=== PATIENT | female | born 1935 | race Caucasian/White ===

== ENCOUNTER 2021-11-28 16:31 | Inpatient (IN) | payer MEDICARE, BC ==
[2021-11-28] MEDS ORDERED: Sodium Chloride 0.9% 10 ML Syringe FLUSH PRN (16:39)
[2021-11-28] MEDS ORDERED: Diltiazem 25 MG/5 ML SDV IVPUSH ONE ×2 (16:58→19:16)
[2021-11-28] MEDS ORDERED: Aspirin 81 MG Tab.Chew PO ONE (17:32)
[2021-11-28 17:54] LABS: ANION GAP 9.6 meq/L (7-15); CHLORIDE,CL 102 mmol/L (98-107); SODIUM,NA 136 mmol/L (136-145)
[2021-11-28] MEDS ORDERED: oxyCODONE 5 MG Tab PO ONE (18:27)
[2021-11-28] MEDS ORDERED: Ondansetron 4 MG/2 ML SDV IVPUSH ONE (18:56)
[2021-11-28] MEDS ORDERED: Heparin Sodium/0.45% NaCl 500 ML IV SCH (19:15)
[2021-11-28] MEDS ORDERED: Diltiazem 125 MG in Sodium Chloride 0.9% 100 ML IV SCH (19:30)
[2021-11-28] MEDS ORDERED: Sodium Chloride 0.9% 1,000 ML IV SCH (20:15)
[2021-11-28] MEDS ORDERED: Heparin Sodium 5,000 Units/ML Vial IVPUSH ONE (20:31)
[2021-11-28] MEDS ORDERED: Fluticasone NASAL Spray 16 GM Bottle NASBOTH PRN (20:32)
[2021-11-28] MEDS ORDERED: Acetaminophen 500 MG Tab PO PRN (20:32)
[2021-11-28] MEDS ORDERED: Promethazine 25 MG/ML SDV IM PRN (20:41)
[2021-11-28] MEDS ORDERED: Morphine 2 MG/ML SYRINGE IVPUSH PRN (20:58)
[2021-11-28] MEDS ORDERED: Nitroglycerin 0.4 MG Tab.SL SL PRN (20:59)
[2021-11-28] MEDS: LORazepam 2 MG/ML SDV IVPUSH PRN (21:13)
[2021-11-28] MEDS ORDERED: Haloperidol Lactate 5 MG/ML SDV IVPUSH ONE (22:29)
[2021-11-29] MEDS: LORazepam 2 MG/ML SDV IVPUSH PRN (07:52)
[2021-11-29] MEDS ORDERED: Cetirizine 10 MG Tab PO SCH (08:00)
[2021-11-29] MEDS ORDERED: Pantoprazole 40 MG Vial IVPUSH SCH (08:00)
[2021-11-29] MEDS ORDERED: Labetalol 100 MG Tab PO SCH (08:00)
[2021-11-29 08:53] LABS: ANION GAP 8.1 meq/L (7-15)
[2021-11-29 11:06] VITALS: BP 111/45; PULSE 73
[2021-11-29 12:59] LABS: CORONAVIRUS COVID-19 NAA NEGATIVE (NEGATIVE); RESPIRATORY SYNCYTIAL VIR NAA NEGATIVE (NEGATIVE)
[2021-11-29] MEDS ORDERED: ALPRAZolam 1 MG Tab PO SCH (20:00)
[2021-11-29] MEDS ORDERED: Citalopram 20 MG Tab PO SCH (20:00)
== END 2021-11-29 14:25 | DRG 310 ==
LOC: LL.ED 16:31 → LL.MS 19:35
PROVIDERS: ADMIT Physician Assistant; ATTEND Physician Assistant
DX: I48.91 Unspecified atrial fibrillation (principal); R77.8 Other specified abnormalities of plasma proteins; I10 Essential (primary) hypertension; K21.9 Gastro-esophageal reflux disease without esophagitis; F41.9 Anxiety disorder, unspecified; M19.90 Unspecified osteoarthritis, unspecified site; K08.409 Partial loss of teeth, unspecified cause, unspecified class; Z20.822 Contact with and (suspected) exposure to COVID-19; Z79.82 Long term (current) use of aspirin; Z79.899 Other long term (current) drug therapy; Z88.0 Allergy status to penicillin; Z79.01 Long term (current) use of anticoagulants; Z95.2 Presence of prosthetic heart valve; Z85.828 Personal history of other malignant neoplasm of skin; Z98.49 Cataract extraction status, unspecified eye
CPT/HCPCS: 0241U; 36415; 71045; 80053; 81003; 83605; 83735; 83880; 84484; 85025; 85379; 85610; 93005; 96374; 96375; 96376; 99285-25; A9270-GY; C9113; J1630; J1644; J2060; J2405; J2550; J3490; J7030

== ENCOUNTER 2022-02-14 14:30 | Emergency (ER) | payer MEDICARE, BC ==
[2022-02-14 15:00] LABS: ANION GAP 7.4 meq/L (7-15); CHLORIDE,CL 105 mmol/L (98-107); SODIUM,NA 142 mmol/L (136-145)
[2022-02-14 17:02] VITALS: BP 130/60; PULSE 65
== END 2022-02-14 15:38 | disposition home or self-care (01) ==
LOC: LL.ED 14:30
DX: R77.8 Other specified abnormalities of plasma proteins (principal); I48.91 Unspecified atrial fibrillation; I25.2 Old myocardial infarction; I10 Essential (primary) hypertension; K21.9 Gastro-esophageal reflux disease without esophagitis; M19.90 Unspecified osteoarthritis, unspecified site; Z88.0 Allergy status to penicillin; Z79.01 Long term (current) use of anticoagulants
CPT/HCPCS: 36415; 70450; 80053; 82607; 84443; 84484; 85025; 93005; 93880; 99284-25

== ENCOUNTER 2022-02-15 06:44 | Observation (INO) | payer MEDICARE, BC ==
[2022-02-15] MEDS ORDERED: Ondansetron 4 MG/2 ML SDV IVPUSH ONE (07:19)
[2022-02-15] MEDS: Sodium Chloride 0.9% 10 ML Syringe FLUSH PRN ×2 (07:43→15:07)
[2022-02-15 08:06] LABS: PTT,PARTIAL THROMBOPLSTIN TIME 34.9 SEC (23.6-29.8)
[2022-02-15 08:28] LABS: CHLORIDE,CL 104 mmol/L (98-107); SODIUM,NA 142 mmol/L (136-145)
[2022-02-15 08:29] LABS: ANION GAP 10.2 meq/L (7-15)
[2022-02-15] MEDS ORDERED: [UNRECOGNIZED DRUG - OTHER] NASBOTH PRN (09:33)
[2022-02-15] MEDS ORDERED: FLUTICASONE PROPIONATE NASBOTH PRN (09:33)
[2022-02-15] MEDS ORDERED: Acetaminophen 500 MG Tab PO PRN (10:00)
[2022-02-15] MEDS ORDERED: Ondansetron 4 MG/2 ML SDV IVPUSH PRN (15:00)
[2022-02-15] MEDS ORDERED: Warfarin 5 MG Tab PO SCH (16:00)
[2022-02-15] MEDS ORDERED: Prochlorperazine 10 MG/2 ML SDV IVPUSH ONE (18:11)
[2022-02-15] MEDS ORDERED: ALPRAZolam 1 MG Tab PO PRN (18:51)
[2022-02-15] MEDS ORDERED: ALPRAZolam 1 MG Tab PO ONE (18:51)
[2022-02-15] MEDS: Metoprolol Tartrate 50 MG Tab PO SCH (19:27)
[2022-02-15] MEDS: Lisinopril 5 MG Tab PO SCH (19:27)
[2022-02-15] MEDS ORDERED: Citalopram 20 MG Tab PO SCH (20:00)
[2022-02-15] MEDS ORDERED: ALPRAZolam 1 MG Tab PO SCH (20:00)
[2022-02-16 07:04] VITALS: BP 140/65
[2022-02-16] MEDS: Lisinopril 5 MG Tab PO SCH (07:05)
[2022-02-16] MEDS: Metoprolol Tartrate 50 MG Tab PO SCH (07:05)
[2022-02-16 07:07] VITALS: PULSE 64
[2022-02-16 07:51] LABS: ANION GAP 6.3 meq/L (7-15)
[2022-02-16] MEDS ORDERED: Cetirizine 10 MG Tab PO SCH (08:00)
[2022-02-16] MEDS ORDERED: Pantoprazole 40 MG Tab.CR PO SCH (08:00)
== END 2022-02-16 10:42 | disposition home or self-care (01) ==
LOC: LL.ED 06:44 → LL.MS 08:51
PROVIDERS: ADMIT Physician Assistant; ATTEND Emergency Medicine
DX: R11.2 Nausea with vomiting, unspecified (principal); R10.13 Epigastric pain; R10.11 Right upper quadrant pain; R77.8 Other specified abnormalities of plasma proteins; I10 Essential (primary) hypertension; K21.9 Gastro-esophageal reflux disease without esophagitis; I25.10 Atherosclerotic heart disease of native coronary artery without angina pectoris; I48.91 Unspecified atrial fibrillation; F41.9 Anxiety disorder, unspecified; Z88.0 Allergy status to penicillin; Z79.01 Long term (current) use of anticoagulants; Z79.899 Other long term (current) drug therapy
CPT/HCPCS: 36415; 80048; 80053; 83735; 83880; 84100; 84443; 84484; 85025; 85610; 85730; 86140; 93005; 96374; 96375; 96376; 99285-25; A9270-GY; G0378; J0780; J2405; J3490

== ENCOUNTER 2022-09-24 07:32 | Emergency (ER) | payer MEDICARE, BC ==
[2022-09-24] MEDS: Ondansetron 4 MG/2 ML SDV IVPUSH ONE (07:46)
[2022-09-24] MEDS: Morphine 2 MG/ML SYRINGE IVPUSH ONE ×2 (07:47→08:09)
[2022-09-24] MEDS: Sodium Chloride 0.9% 10 ML Syringe FLUSH PRN (07:49)
[2022-09-24] MEDS: Sodium Chloride 0.9% 1,000 ML IV SCH (08:06)
[2022-09-24 08:52] LABS: CORONAVIRUS COVID-19 NAA NEGATIVE (NEGATIVE); RESPIRATORY SYNCYTIAL VIR NAA NEGATIVE (NEGATIVE)
[2022-09-24] MEDS: Iopamidol 612 MG/ML 100 ML Bottle IVPUSH STA (09:09)
[2022-09-24 09:31] LABS: ANION GAP 8.6 meq/L (7-15); CHLORIDE,CL 106 mmol/L (98-107); ESTIMATED GFR 66 mL/min (>=60); SODIUM,NA 141 mmol/L (136-145)
[2022-09-24] MEDS: Magnesium Sulfate/Water 2 GM in Premix Bag 1 BAG IV ONE (11:05)
[2022-09-24 14:43] VITALS: BP 144/60; PULSE 76
== END 2022-09-24 17:00 | disposition home or self-care (01) ==
LOC: LL.ED 07:32
DX: K52.9 Noninfective gastroenteritis and colitis, unspecified (principal); R79.89 Other specified abnormal findings of blood chemistry; I10 Essential (primary) hypertension; Z88.0 Allergy status to penicillin; Z79.899 Other long term (current) drug therapy; Z79.01 Long term (current) use of anticoagulants; Z20.822 Contact with and (suspected) exposure to COVID-19
CPT/HCPCS: 0241U; 36415; 71045; 74177; 80053; 81001; 83735; 83880; 84484; 85025; 85379; 85610; 87081; 87086; 87430; 93005; 93010; 96361; 96365; 96375; 99284; 99285-25; J2270; J2405; J3475; J3490; J7030; Q9967